=== PATIENT | female | born 1960 | race Caucasian/White ===

== ENCOUNTER → 2019-06-10 08:21 | Outpatient (BNVA) | payer BC, SELFPAY | PROVIDERS: Family Provider Family Medicine; Visit Provider Internal Medicine Cardiovascular Disease | DX: E78.5 Hyperlipidemia, unspecified (principal) | CPT/HCPCS: 80061 ==

== ENCOUNTER 2019-10-24 13:11 | Observation (INO) | payer BC, SELFPAY ==
[2019-10-24] VITALS (7 sets, daily range): BP systolic 112–141; BP diastolic 75–116; PULSE 68–75; RESP 16–18; TEMP 36.6–36.8; O2SAT 96–100; BMI 29.2
--- NOTE | 2019-10-24 13:44 | W.ED.ABDPA2 ---
HPI - Abdominal Pain General: Chief Complaint: Abdominal Pain Stated Complaint: abd pain Time Seen by Provider: 10/24/19 13:31 History of Present Illness: HPI narrative: 59-year-old female presents with complaint of sharp epigastric pain radiating bilaterally across the upper abdomen into her back. Started last night around 3 AM resolved sometime through the night and then recurred again this morning began to worsen she is has anorexia and nausea she denies any vomiting or diarrhea she had a normal bowel movement this morning. She denies dysuria urgency or frequency there is no history of renal stones. She did recently have a superficial abdominal wall cyst removed in the epigastric area but does not been draining and there is no redness around it she has a small bandage over it was examined see below. She states she ate some stirfry last night it did not seem to bother at the time she does occasionally have some reflux she is taken several atql-asp-chxhyts medications last night and this morning clued Tums Prilosec etc. has not really had any significant relief from them. MD elicited complaint: abdominal pain Pertinent past history: other (Intermittent mild reflux) Onset (ago): hour(s) Pain Consistency: constant and colicky Location: Epigastric Severity: moderate Quality: cramping and stabbing Radiation: bilateral flank (Upper back) Exacerbating factors: eating and other (Laying flat) Relieving factors: rest and other (Semi-reclined) Associated Symptoms: Reports anorexia, bloating, GI cramping, dyspepsia, heartburn, nausea and poor appetite; Denies change in bowel habits, change in stool character, coffee ground emesis, constipation, diarrhea, dysuria, fever(s), hematochezia, hematuria, hematemesis, fecal incontinence, loose stools, melena, syncope and vomiting Treatments prior to arrival: antacids Review of Systems Const: Denies: fever(s) ENMT: Denies: throat pain, ear or mastoid pain, nasal discharge or nasal congestion Card: Denies: syncope Resp: Denies: dyspnea, productive cough or non-productive cough GI: Reports: nausea, heartburn, bloating and GI cramping; Denies: vomiting, hematemesis, coffee ground emesis, diarrhea, constipation, fecal incontinence, change in bowel habits, change in stool character, hematochezia or melena : Denies: dysuria or hematuria Skin/Breast: Denies: rash or pruritus PFSH ED PFSH: Medical History (Updated 10/24/19 @ 18:37 by Rodney Ayala DO) Benign essential HTN Dyslipidemia Old cerebrovascular accident (CVA) without late effect Surgical History (Updated 10/24/19 @ 17:02 by Michael Guillaume MD) History of ankle surgery Right -- tendon History of appendectomy Laparoscopic History of breast augmentation Bilateral implants History of section, low transverse x 1 History of cholecystectomy Laparoscopic History of hysterectomy Laparoscopic assisted vaginal History of neck surgery ACF x 1 --had to have a left vocal cord implant subsequently for recurrent laryngeal nerve paralyzation during surgery History of right knee surgery History of shoulder surgery Right Social History (Updated 10/24/19 @ 16:58 by Michael Guillaume MD) Smoking and tobacco status: former smoker Quit status (tobacco): has quit using tobacco Former quit date comment: I smoked when I was in my 20s Alcohol intake: current Alcohol intake frequency: 0-2 Drinks per Day Alcohol use comment: Wine several times a week Physical Exam Const: COMMON NORMALS: no acute distress GENERAL APPEARANCE: cooperative and comfortable ORIENTATION/CONSCIOUSNESS: Yes awake, Yes oriented to person, Yes oriented to place and Yes oriented to time HENMT: COMMON NORMALS: normocephalic, atraumatic, hearing grossly normal bilaterally, external ears normal, EAC's normal, TM's normal bilaterally, Normal nasal mucous membranes and turbinates present, moist oral mucous membranes and oropharynx normal HEAD & SCALP: normocephalic and atraumatic NOSE: Normal nasal mucous membranes and turbinates present EXTERNAL EAR: Yes external ears normal EXTERNAL AUDITORY CANAL: EAC's normal TYMPANIC MEMBRANE: TM's normal bilaterally Eye: COMMON NORMALS: Equal, round and reactive pupils present, EOMs intact bilaterally, conjunctivae normal and no scleral icterus CONJUNCTIVA: Yes conjunctivae normal PUPIL: Yes Equal, round and reactive pupils present Neck/C-Spine: COMMON NORMALS: full ROM, no lymphadenopathy, supple and no JVD Lymph: LYMPHATIC: no lymphadenopathy noted and no lymphedema noted Resp: COMMON NORMALS: normal respiratory effort, No retractions, No use of accessory muscles and clear to auscultation bilaterally AUSCULTATION: clear to auscultation bilaterally Cardio: COMMON NORMALS: no JVD, regular rate, regular rhythm and No murmurs present (Cardio) RATE: regular rate RHYTHM: regular rhythm GI: COMMON NORMALS: Soft to palpation and No hepatosplenomegaly present AUSCULTATION: Yes normoactive bowel sounds PALPATION: Yes Soft to palpation, Yes Tenderness to palpation present (GI) (Mild tenderness epigastrium no guarding or no rebound bowel sounds are positive), No Guarding due to palpation present (GI) and Yes No hepatosplenomegaly present Extremity: COMMON NORMALS: normal to inspection, capillary refill normal, no clubbing, cyanosis or edema, no calf tenderness and no pedal edema Neuro: SENSORIUM/ORIENTATION: Yes oriented to person, Yes oriented to place and Yes oriented to time Skin: COMMON NORMALS: no rashes or lesions noted GENERAL SKIN EXAM: no rashes or lesions noted Course Vital Signs: Vital signs: Vital Signs Temperature 98.0 F 10/24/19 17:50 Pulse Rate 70 10/24/19 17:50 Respiratory Rate 16 10/24/19 17:50 Blood Pressure 131/81 10/24/19 17:50 Pulse Oximetry 98 10/24/19 17:50 MDM - Abdominal Pain MDM Narrative: Medical decision making narrative: Patient found to have a small bowel obstruction we will go and place an NG discussed with Dr. Guillaume he will admit the primary he will see the patient in the emergency room. Lab Data: Labs: Lab Results 10/24/19 10/24/19 10/24/19 Range/Units 13:30 13:30 13:30 WBC 9.6 (4.0-10.0) 10^3/ uL RBC 4.78 (4.1-5.3) 10^6/u L Hgb 14.1 (11.5-15.3) g/dL Hct 44.6 (37.0-47.0) % MCV 93.3 (81-99) fL MCH 29.5 (28.0-34.0) pg MCHC 31.6 (30.0-36.0) g/dL RDW 12.3 (12.1-15.1) % Plt Count 362 (130-400) 10^3/c mm MPV 10.1 (7.4-10.4) fL Neut % (Auto) 69.2 % Lymph % (Auto) 22.4 % Norton % (Auto) 5.9 % Eos % (Auto) 0.6 % Baso % (Auto) 0.6 % Neut # (Auto) 6.6 (1.8-7.7) 10^3/u L Lymph # (Auto) 2.2 (0.8-4.8) 10^3/u L Norton # (Auto) 0.6 (0.2-0.9) 10^3/u L Eos # (Auto) 0.1 (0.0-0.8) 10^3/u L Baso # (Auto) 0.1 (0.0-0.1) 10^3/u L Nucleated RBC % (a uto) 0 % Nucleated RBCs # 0.0 /100WBC Sodium 138 (136-145) mmol/L Potassium 4.2 (3.5-5.1) mmol/L Chloride 98 (98-107) mmol/L Carbon Dioxide 27 (22-29) mmol/L Anion Gap 17.2 (5-19) BUN 17 (6-20) mg/dL Creatinine 0.8 (0.5-0.9) mg/dL GFR Calculation 73.7 L (90-130) mL/min Glucose 110 (65-115) mg/dL Calculated Osmolal ity 283 L (285-295) mOsm/k g Calcium 10.6 H (8.5-10.5) mg/dL Total Bilirubin 0.5 (0.15-1.2) mg/dL AST 37 H (0-32) U/L ALT 44 H (0-33) U/L Alkaline Phosphata se 56 (35-105) IU/L Troponin T Baselin e 6 (0-10) ng/mL Troponin T 120 Min [place]sparks (0-10) ng/mL Delta Troponin T (0-10) ABS# Total Protein 8.0 (6.6-8.7) g/dL Albumin 5.3 H (3.5-5.2) g/dL Globulin 2.7 (1.3-4.6) g/dL Lipase 36 (13-60) U/L Urine Color (Yellow) Urine Appearance (CLEAR) Urine pH (5-7) Ur Specific Gravit y (1.005-1.030) Urine Protein (Negative) Urine Glucose (UA) (Normal) Urine Ketones (Negative) Urine Blood (Negative) Urine Nitrate (Negative) Urine Bilirubin (NEGATIVE) Urine Urobilinogen (Negative) mg/dL Ur Leukocyte Tammi ase (Negative) Urine RBC (0-2) /hpf Urine WBC (0-5) /hpf Ur Squamous Epith Cells (0-5) Urine Bacteria (NONE) Urine Mucus 10/24/19 10/24/19 Range/Units 14:04 15:47 WBC (4.0-10.0) 10^3/ uL RBC (4.1-5.3) 10^6/u L Hgb (11.5-15.3) g/dL Hct (37.0-47.0) % MCV (81-99) fL MCH (28.0-34.0) pg MCHC (30.0-36.0) g/dL RDW (12.1-15.1) % Plt Count (130-400) 10^3/c mm MPV (7.4-10.4) fL Neut % (Auto) % Lymph % (Auto) % Norton % (Auto) % Eos % (Auto) % Baso % (Auto) % Neut # (Auto) (1.8-7.7) 10^3/u L Lymph # (Auto) (0.8-4.8) 10^3/u L Norton # (Auto) (0.2-0.9) 10^3/u L Eos # (Auto) (0.0-0.8) 10^3/u L Baso # (Auto) (0.0-0.1) 10^3/u L Nucleated RBC % (a uto) % Nucleated RBCs # /100WBC Sodium (136-145) mmol/L Potassium (3.5-5.1) mmol/L Chloride (98-107) mmol/L Carbon Dioxide (22-29) mmol/L Anion Gap (5-19) BUN (6-20) mg/dL Creatinine (0.5-0.9) mg/dL GFR Calculation (90-130) mL/min Glucose (65-115) mg/dL Calculated Osmolal ity (285-295) mOsm/k g Calcium (8.5-10.5) mg/dL Total Bilirubin (0.15-1.2) mg/dL AST (0-32) U/L ALT (0-33) U/L Alkaline Phosphata se (35-105) IU/L Troponin T Baselin e (0-10) ng/mL Troponin T 120 Min [place] 6.00 (0-10) ng/mL Delta Troponin T 0 (0-10) ABS# Total Protein (6.6-8.7) g/dL Albumin (3.5-5.2) g/dL Globulin (1.3-4.6) g/dL Lipase (13-60) U/L Urine Color Yellow (Yellow) Urine Appearance Clear (CLEAR) Urine pH 5 (5-7) Ur Specific Gravit y 1.020 (1.005-1.030) Urine Protein Neg (Negative) Urine Glucose (UA) Norm (Normal) Urine Ketones Negative (Negative) Urine Blood 2+ H (Negative) Urine Nitrate Negative (Negative) Urine Bilirubin Neg (NEGATIVE) Urine Urobilinogen Norm (Negative) mg/dL Ur Leukocyte Tammi ase Negative (Negative) Urine RBC 5-10 H (0-2) /hpf Urine WBC 0-4 H (0-5) /hpf Ur Squamous Epith Cells 0-4 H (0-5) Urine Bacteria Trace (NONE) Urine Mucus 2+ Discharge Plan Discharge Patient Disposition: Admitted As Inpatient Admit Provider: Michael Guillaume Clinical Impression: Small bowel obstruction, Benign essential HTN Condition: Stable Interventions: ED Discharge Assessment Last Done: 10/24/19 17:00 ED Charges Last Done: 10/24/19 16:23 Discharge Date/Time: 10/24/19 17:03 Coding Level of Care Code ED Concrete Tester for Angelog Fwd Exam Comprehensive
--- NOTE | 2019-10-24 13:47 | ECG_ITS ---
Measurements Intervals [place] Rate: 68 P: 28 MA: 196 QRS: 23 QRSD: 96 T: 40 QT: 424 QTc: 453 SINUS RHYTHM POSSIBLE ANTERIOR MYOCARDIAL INFARCTION , PROBABLY OLD [30 ms Q WAVE IN V3/V4, OR R < 0.2 mV IN V4] Compared to ECG 12/04/2017 09:49:23 No significant changes Electronically Signed On 10-24-2019 16:36:50 CDT by Alvarez Bain M.D. [id number]
--- NOTE | 2019-10-24 13:47 | CT_ITS ---
WS: [id number] CT abdomen pelvis w con* [id number] REASON FOR EXAM: abd pain IV CONTRAST ADMINISTERED: Omnipaque 300, 95 mL. This lesion is smooth in outline. TOTAL EXAM DLP: 1024.[address] scans at [facility] use at least one of these dose optimization techniques: automat ed exposure control; mA and/or kV adjustment per patient size (includes targeted exams where dose is matched to clinical indication); or iterative reconstruction. FINDINGS: Dilatation of the stomach, Follow-up evaluation of this mass with a three-phase study recommended. duodenum and jejunum down to the mid jejunum at the umbilicus area is noted and there is narrowing seen in the partial obstruction at the umbilical area in the mid jejunum. A definite tumor is not seen in this location and there is no evidence of intussusception. Abrupt narrowing is noted. The appendix on the right was normal the ascending colon was normal. The liver shows normal enhancement small hemangiomas seen along the surface of the liver and along th e caudate lobe is a mass measures 2.54 cm that is not purely cystic. The lumbar spine appear to be essentially normal. The pelvis show no bony changes. . The pancreas is normal no masses in the pancreas are seen. Prior cholecystectomy . Both kidneys appear to be normal with no obstructive changes the ureters were normal. The large bowel appears to be essentially normal. There is no lesions in the descending colon no dive rticulosis or diverticulitis. In the pelvis there appears to be hysterectomized pelvis of the uterus and ovaries are not seen. Bilateral augmentation of the breast are noted. IMPRESSION: Incomplete small bowel obstruction in the mid jejunum. A mass is seen in the caudate lobe of the liver. This mass is smooth in outline consideration of a th ree-phase study with contrast or*MRI to evaluate this mass.
--- NOTE | 2019-10-24 13:47 | XR_ITS ---
WS: [id number] XR chest 1V portable [id number] REASON FOR EXAM: dyspnea/cough FINDINGS: Bilateral augmentation of the breast are seen. The heart and mediastinal interfaces normal. Peripheral lungs are well aerated. No pneumonia, pleural effusion, pulmonary edema, or mass effect. No interval changes since December 04, 2017. XR/XR chest 1V portable [id number] IMPRESSION: Negative chest for active pathology Bilateral breast augmentation
[2019-10-24] MEDS: sodium chloride 0.9% 1,000 ML 999 ML IV (14:03)
[2019-10-24 14:15] LABS: Basophils # 0.1 10^3/uL (0.0-0.1); Basophils % 0.6 %; Eosinophils # 0.1 10^3/uL (0.0-0.8); Eosinophils % 0.6 %; Hematocrit 44.6 % (37.0-47.0); Hemoglobin 14.1 g/dL (11.5-15.3); Lymphocytes # 2.2 10^3/uL (0.8-4.8); Lymphocytes % 22.4 %; Mean Corpuscular HGB Conc 31.6 g/dL (30.0-36.0); Mean Corpuscular Hemoglobin 29.5 pg (28.0-34.0); Mean Corpuscular Volume 93.3 fL (81-99); Mean Platelet Volume 10.1 fL (7.4-10.4); Monocytes # 0.6 10^3/uL (0.2-0.9); Monocytes % 5.9 %; Neutrophils # 6.6 10^3/uL (1.8-7.7); Neutrophils % 69.2 %; Nucleated Red Blood Cells % 0 %; Platelet Count 362 10^3/cmm (130-400); Red Blood Count 4.78 10^6/uL (4.1-5.3); Red Cell Distribution Width 12.3 % (12.1-15.1); White Blood Count 9.6 10^3/uL (4.0-10.0)
[2019-10-24] MEDS: iohexol 300 mg/mL 100 mL Btl IV (14:22)
[2019-10-24 14:24] LABS: Alanine Aminotransferase 44 U/L (0-33); Albumin Level 5.3 g/dL (3.5-5.2); Alkaline Phosphatase 56 IU/L (35-105); Anion Gap 17.2 (5-19); Aspartate Amino Transferase 37 U/L (0-32); Blood Urea Nitrogen 17 mg/dL (6-20); Calcium 10.6 mg/dL (8.5-10.5); Carbon Dioxide 27 mmol/L (22-29); Chloride 98 mmol/L (98-107); Creatinine Clr Calc Pharmacy 77.0383; Globulin 2.7 g/dL (1.3-4.6); Glomerular Filtration Rate 73.7 mL/min (90-130); Glucose 110 mg/dL (65-115); Lipase 36 U/L (13-60); Osmolality Calculated 283 mOsm/kg (285-295); Potassium 4.2 mmol/L (3.5-5.1); Sodium 138 mmol/L (136-145); Total Bilirubin 0.5 mg/dL (0.15-1.2)
[2019-10-24 14:25] LABS: Troponin(5th) Baseline 6 ng/mL (0-10)
[2019-10-24 15:01] LABS: Add Urine Microscopic? YES; Bilirubin Urine Neg (NEGATIVE); Blood Urine 2+ (Negative); Glucose Urine UA Norm (Normal); Ketones Urine Negative (Negative); Leukocyte Esterase Urine Negative (Negative); Nitrate Urine Negative (Negative); Protein Urine Neg (Negative); Urine Appearance Clear (CLEAR); Urine Color Yellow (Yellow); Urobilinogen Urine Norm (Negative); pH Urine 5 (5-7)
[2019-10-24 15:06] LABS: Bacteria Urine TRACE; Mucus Urine 2+; Squamous Epithelial Cell Urine 0-4 (0-5); WBC Urine 0-4 /hpf (0-5)
[2019-10-24 15:07] LABS: Add Urine Culture? No
[2019-10-24] MEDS: morphine 4 mg/mL SDV 1 mL IVP (15:19)
[2019-10-24] MEDS: ondansetron 2 mg/ML SDV 2 mL 4 MG IVP (15:19)
--- NOTE | 2019-10-24 15:47 | ECG_ITS ---
Measurements Intervals [place] Rate: 73 P: 26 MA: 187 QRS: 31 QRSD: 93 T: 29 QT: 416 QTc: 461 SINUS RHYTHM Compared to ECG 10/24/2019 14:56:13 Myocardial infarct finding no longer present Electronically Signed On 10-25-2019 18:09:21 CDT by Ana Rosa Hendrix M.D. [id number]
[2019-10-24] MEDS: LORazepam 2 mg/mL INJ 1 mL 1 MG IVP (15:56)
[2019-10-24 16:07] LABS: Troponin 5 2HR Delta 0 ABS# (0-10)
--- NOTE | 2019-10-24 16:35 | XR_ITS ---
WS: [id number] XR KUB portable [id number] REASON FOR EXAM: ng placement FINDINGS: Nasogastric tube is seen transversing the mediastinum and is seen in the upper aspects of t he stomach. Consideration of repositioning of the tube lower in the stomach is recommended. There is again noted bilateral breast augmentation. XR/XR KUB portable [id number] IMPRESSION: Nasogastric tube is seen in the stomach upper portion.
--- NOTE | 2019-10-24 16:42 | PC.NURSE ---
portable xray at bedside
--- NOTE | 2019-10-24 16:44 | PM.HP ---
Providers/Chief Complaint Admitting Physician: Michael Guillaume MD Chief Complaint: abd pain History of Present Illness Patria Johnson is a 59 year old female who states that she ate some stirfry last night and after going to bed awoke around 3 AM with crampy upper abdominal pain. She said she has eaten the same type of stirfry multiple times in the past without any problems. No one else in the household ate what she ate last night. She says the pain continued to worsen throughout the morning and even went through to her back. She developed nausea but never did vomit. She tried some antacids and [id number]-kfp-jpreqif remedies without success and finally came to the emergency room where a CAT scan showed evidence of a possible mid small bowel obstruction. She ended up getting a nasogastric tube placed in the emergency department but said she was actually starting to feel better even before that happened. The patient says this has never happened to her before. She had a normal bowel movement this morning although was a little bit more hard than normal in consistency. She denies any fevers at home. She had a colonoscopy 4?5 years ago and says it was normal. She has no known family history of GI neoplasia. Review of Systems General: Reports: 10 or more systems reviewed and unremarkable except in HPI and below Const: Denies: fever(s) ENMT: Reports: throat pain (Only from nasogastric tube) Resp: Denies: dyspnea GI: Reports: abdominal pain and nausea; Denies: vomiting : Denies: dysuria Medications/Allergies Home Medications Medication Instructions Recorded Confirmed Last Taken Type albuterol sulfate 90 mcg/actuation 2 puff INHALATION Q6H PRN 06/03/19 10/24/19 Unknown History aerosol inhaler aspirin 81 mg tablet,delayed 81 mg PO DAILY tab 06/03/19 10/24/19 10/24/19 History release levothyroxine 75 mcg capsule See Rx Instructions .ROUTE 06/03/19 10/24/19 Unknown History .COMPLEX cap levothyroxine 88 mcg capsule See Rx Instructions .ROUTE 06/03/19 10/24/19 10/24/19 History .COMPLEX cap nitroglycerin 0.4 mg sublingual 0.4 mg SUBLINGUAL Q5M PRN 06/03/19 10/24/19 Unknown History tablet metoprolol tartrate 25 mg tablet 25 mg PO BID 90 Days #180 tab 08/30/19 10/24/19 10/24/19 Rx doxycycline hyclate 100 mg PO BID 10/24/19 10/24/19 10/23/19 History simvastatin 20 mg PO BID 10/24/19 10/24/19 10/24/19 History Allergies Allergy/AdvReac Type Severity Reaction Status Date / Time No Known Allergies Allergy Unverified 10/24/19 13:26 PFSH Acute PFSH: Medical History (Updated 10/24/19 @ 16:47 by Michael Guillaume MD) Benign essential HTN Dyslipidemia Old cerebrovascular accident (CVA) without late effect Surgical History (Updated 10/24/19 @ 17:02 by Michael Guillaume MD) History of ankle surgery Right -- tendon History of appendectomy Laparoscopic History of breast augmentation Bilateral implants History of section, low transverse x 1 History of cholecystectomy Laparoscopic History of hysterectomy Laparoscopic assisted vaginal History of neck surgery ACF x 1 --had to have a left vocal cord implant subsequently for recurrent laryngeal nerve paralyzation during surgery History of right knee surgery History of shoulder surgery Right Social History (Updated 10/24/19 @ 16:58 by Michael Guillaume MD) Smoking and tobacco status: former smoker Quit status (tobacco): has quit using tobacco Former quit date comment: I smoked when I was in my 20s Alcohol intake: current Alcohol intake frequency: 0-2 Drinks per Day Alcohol use comment: Wine several times a week Vitals/I&O/Wt Last Vital Signs Temp 98.2 F 10/24/19 13:23 Pulse 68 10/24/19 15:24 Resp 18 10/24/19 13:23 BP 141/116 10/24/19 15:24 Pulse Ox 99 10/24/19 15:24 10/24/19 10/24/19 10/24/19 06:59 14:59 22:59 Intake Total 1000 / 1000 Balance 1000 / 1000 Weight last 48 hrs Weight 170 lb Physical Exam Narrative: EXAM NARRATIVE: The patient was encountered in her room in the emergency department. She has a nasogastric tube in her right naris that is draining fairly clear fluid/saliva. She does not appear to be in any distress. The pupils are equal. No carotid bruits are heard. The lungs are clear anteriorly. The heart is regular. The abdomen reveals hypoactive bowel sounds but is reasonably soft. The patient does have some scattered tenderness about the upper abdomen. No obvious masses are palpated. The extremities reveal no edema. Neurologically the patient is grossly intact. Data : 10/24/19 13:30 10/24/19 13:30 CT Abd/Pel: Radiologist's impression: CT abdomen pelvis 10/24/2019 IMPRESSION: Incomplete small bowel obstruction in the mid jejunum. A mass is seen in the caudate lobe of the liver. This mass is smooth in outline consideration of a three-phase study with contrast or*MRI to evaluate this mass. A&P Assessment and plan (1) Small bowel obstruction: CT was reviewed. It is difficult to identify an actual transition point but it appears as if the bowel narrows somewhat in the low epigastrium towards the midline. I discussed this with the patient and her in some detail. We discussed toe most of these episodes are from postoperative adhesions (the patient has had multiple abdominal procedures), although some types of food can create temporary similar problems (and the patient did eat a vegetable dish last night). She says she was already feeling better even before the nasogastric tube was inserted, so hopefully this will be a very transient problem. She currently has an NG tube and is comfortable. Continue conservative management for now. Status: Acute Attestations Medical Necessity Statement*: Based on my medical assessment, presenting symptoms and consideration of the scope of surgical therapy, I expect this patient will require treatment in the hospital for a period of time spanning less than 2 midnights, and is therefore being placed in observation status. Coding Level of Care Code Acute Surgical Technician for Sheldon Pendleton Diagnoses Small bowel obstruction K56.609
[2019-10-24] MEDS: D5-NS 0.45% + KCL 20 mEq 20 MEQ/1,000 ML BAG 100 MEQ IV (17:46)
--- NOTE | 2019-10-24 19:47 | ECG_ITS ---
Measurements Intervals [place] Rate: 68 P: 24 WI: 199 QRS: 3 QRSD: 106 T: 28 QT: 423 QTc: 451 SINUS RHYTHM INFERIOR MYOCARDIAL INFARCTION PROBABLY OLD Compared to ECG 10/24/2019 14:56:13 No significant changes Electronically Signed On 10-25-2019 18:08:40 CDT by Ana Rosa Hendrix M.D. [id number]
[2019-10-24 20:10] LABS: Troponin 5 6HR Delta 0 ng/L (0-12)
[2019-10-24] MEDS: morphine 4 mg/mL SDV 1 mL 2 MG IVP (20:29)
[2019-10-25] VITALS (7 sets, daily range): BP systolic 117–132; BP diastolic 72–85; PULSE 79–85; RESP 16–18; TEMP 36.9–37.1; O2SAT 96–99
[2019-10-25] MEDS: phenol oral Spray 177 mL 3 SPRAY MUCOUS MEM (01:24)
[2019-10-25] MEDS: D5-NS 0.45% + KCL 20 mEq 20 MEQ/1,000 ML BAG 100 MEQ IV (03:44)
[2019-10-25 05:00] LABS: Basophils # 0.1 10^3/uL (0.0-0.1); Basophils % 0.6 %; Eosinophils # 0.1 10^3/uL (0.0-0.8); Hematocrit 38.2 % (37.0-47.0); Hemoglobin 12.1 g/dL (11.5-15.3); Lymphocytes # 2.2 10^3/uL (0.8-4.8); Lymphocytes % 27.1 %; Mean Corpuscular HGB Conc 31.7 g/dL (30.0-36.0); Mean Corpuscular Volume 94.6 fL (81-99); Monocytes # 0.8 10^3/uL (0.2-0.9); Monocytes % 9.5 %; Neutrophils # 5.1 10^3/uL (1.8-7.7); Nucleated Red Blood Cells % 0 %; Platelet Count 288 10^3/cmm (130-400); Red Blood Count 4.04 10^6/uL (4.1-5.3); Red Cell Distribution Width 12.2 % (12.1-15.1); White Blood Count 8.3 10^3/uL (4.0-10.0)
[2019-10-25 05:21] LABS: Alanine Aminotransferase 32 U/L (0-33); Albumin Level 4.1 g/dL (3.5-5.2); Alkaline Phosphatase 46 IU/L (35-105); Aspartate Amino Transferase 24 U/L (0-32); Blood Urea Nitrogen 11 mg/dL (6-20); Calcium 9.6 mg/dL (8.5-10.5); Carbon Dioxide 30 mmol/L (22-29); Chloride 100 mmol/L (98-107); Globulin 2.5 g/dL (1.3-4.6); Glomerular Filtration Rate 85.9 mL/min (90-130); Glucose 126 mg/dL (65-115); Osmolality Calculated 284 mOsm/kg (285-295); Sodium 138 mmol/L (136-145); Total Bilirubin 0.3 mg/dL (0.15-1.2); Total Protein 6.6 g/dL (6.6-8.7)
--- NOTE | 2019-10-25 06:00 | PC.NURSE ---
SHIFT SUMMARY Has had a good night. Had some c/o cramping pain across upper abdomen and into back early in shift and received IV Morphine X1 with good relief. Since has denied need for further med. Abd soft and nontender. BS hypoactive but has started to pass some gas this morning. Has had no c/o nausea. NG remains intact via right nare and to low interm sx. Had 275ml pale green drainage this shift. IV infusing at 100ml/hr rate. Remains NPO with swabs for dry mouth. Using Chloraseptic spray for sore throat with NG. Ambulates to bathroom
--- NOTE | 2019-10-25 07:50 | P.PN_ITS ---
Subjective Subjective: Interval history: The patient says her abdominal pain is completely gone. She has been passing flatus all night long. Vitals/I&O/Wt Last Vital Signs Temp 98.8 F 10/25/19 07:43 Pulse 81 10/25/19 07:43 Resp 16 10/25/19 07:43 BP 132/85 10/25/19 07:43 Pulse Ox 96 10/25/19 07:43 10/24/19 10/25/19 10/25/19 22:59 06:59 14:59 Intake Total 1078.333 / 1995.666 918.333 / 1995.666 Output Total 575 / 575 Balance 1078.333 / 1421.666 343.333 / 1421.666 Weight last 48 hrs Weight 170 lb Physical Exam Narrative: EXAM NARRATIVE: Bowel sounds are present. The abdomen is comple tely soft and nontender this morning. Data : 10/25/19 04:15 10/25/19 04:15 A&P Assessment and plan (1) Small bowel obstruction: The patient is much improved this morning. I have to wonder if this occurred due to the large intake of vegetable matter the night previously. Discontinue nasogastric tube. Clear liquid diet. If the patient does well we will advance her diet quickly and if she has no problems she can be discharged home. Status: Acute Attestations Medical Necessity Statement*: Based on my medical assessment, presenting symptoms and consideration of the scope of surgical therapy, I expect this patient will require treatment in the hospital for a period of time spanning less than 2 midnights, and remains in observation status. Coding Level of Care Code Acute Optical Glass Wet Inspector for Sheldon Pendleton Diagnoses Small bowel obstruction K56.609
--- NOTE | 2019-10-25 08:04 | PM.DCS ---
Discharge Providers Date of Admission: 10/24/19 16:07 Date of Discharge: October 25, 2019 Attending Provider at Admission: Michael Guillaume MD Attending Provider at Discharge: Michael Guillaume MD Primary Care Provider: Nima Hoffman MD Diagnoses at Discharge Discharge Diagnosis (1) Small bowel obstruction: Status: Acute Reason for Visit Reason for Visit: abd pain Hospital Course Discharge Summary: This is a 59-year-old white female who presented to the hospital with a less than 24-hour history of crampy upper abdominal pain after eating stirfry with a lot of vegetables in it the night previously. A CAT scan showed changes consistent with a possible small bowel obstruction. A nasogastric tube was inserted and the patient was placed in observation status. Her nasogastric tube had minimal output. By the following morning her pain was completely gone and she had been passing flatus all night. Her nasogastric tube was removed and she was started on a clear liquid diet which she tolerated well. My intention was to advance her to a soft diet, but by mid?late morning she was up ambulating in the hallways and said she was feeling great. She asked if she could be discharged this morning. The patient was discharged to home with instructions to follow-up with her primary care physician as needed. Physical Exam Narrative: EXAM NARRATIVE: Bowel sounds present. Abdomen completely soft and nontender. Discharge Data Data Completed and Pending: Completed Studies During Hospitalization Category Date Time Status CT abdomen pelvis w con* [id number] Stat Cat Scan 10/24/19 13:47 Completed XR KUB portable 7 [id number] Routine Exams 10/24/19 16:35 Completed XR chest 1V tresa ble [id number] Stat Exams 10/24/19 13:47 Completed Pending at discharge Category Date Time Status Immunochemical Fe lynne OCB Stat Lab 10/24/19 14:06 Ordered Labs from last 24 hours 10/25/19 10/25/19 10/24/19 04:15 04:15 19:47 WBC 8.3 RBC 4.04 L Hgb 12.1 Hct 38.2 MCV 94.6 MCH 30.0 MCHC 31.7 RDW 12.2 Plt Count 288 MPV 10.0 Neut % (Auto) 61.0 Lymph % (Auto) 27.1 [place] % (Auto) 9.5 Eos % (Auto) 1.0 Baso % (Auto) 0.6 Neut # (Auto) 5.1 Lymph # (Auto) 2.2 [place] # (Auto) 0.8 Eos # (Auto) 0.1 Baso # (Auto) 0.1 Nucleated RBC % (a uto) 0 Nucleated RBCs # 0.0 Sodium 138 Potassium 4.0 Chloride 100 Carbon Dioxide 30 H Anion Gap 12.0 BUN 11 Creatinine 0.7 GFR Calculation 85.9 L Glucose 126 H Calculated Osmolal ity 284 L Calcium 9.6 Total Bilirubin 0.3 AST 24 ALT 32 Alkaline Phosphata se 46 Troponin I 6 Hour 6.00 Troponin I Hi Sens Del 0 Troponin T Baselin e Troponin T 120 Min [place] Troponin T Total Protein 6.6 Albumin 4.1 Globulin 2.5 Lipase Urine Color Urine Appearance Urine pH Ur Specific Gravit y Urine Protein Urine Glucose (UA) Urine Ketones Urine Blood Urine Nitrate Urine Bilirubin Urine Urobilinogen Ur Leukocyte Tammi ase Urine RBC Urine WBC Ur Squamous Epith Cells Urine Bacteria Urine Mucus 10/24/19 10/24/19 10/24/19 15:47 14:04 13:30 WBC RBC Hgb Hct MCV MCH MCHC RDW Plt Count MPV Neut % (Auto) Lymph % (Auto) [place] % (Auto) Eos % (Auto) Baso % (Auto) Neut # (Auto) Lymph # (Auto) [place] # (Auto) Eos # (Auto) Baso # (Auto) Nucleated RBC % (a uto) Nucleated RBCs # Sodium Potassium Chloride Carbon Dioxide Anion Gap BUN Creatinine GFR Calculation Glucose Calculated Osmolal ity Calcium Total Bilirubin AST ALT Alkaline Phosphata se Troponin I 6 Hour Troponin I Hi Sens Del Troponin T Baselin e 6 Troponin T 120 Min [place] 6.00 [place] Troponin T 0 Total Protein Albumin Globulin Lipase Urine Color Yellow Urine Appearance Clear Urine pH 5 Ur Specific Gravit y 1.020 Urine Protein Neg Urine Glucose (UA) Norm Urine Ketones Negative Urine Blood 2+ H Urine Nitrate Negative Urine Bilirubin Neg Urine Urobilinogen Norm Ur Leukocyte Tammi ase Negative Urine RBC 5-10 H Urine WBC 0-4 H Ur Squamous Epith Cells 0-4 H Urine Bacteria Trace Urine Mucus 2+ 10/24/19 10/24/19 13:30 13:30 WBC 9.6 RBC 4.78 Hgb 14.1 Hct 44.6 MCV 93.3 MCH 29.5 MCHC 31.6 RDW 12.3 Plt Count 362 MPV 10.1 Neut % (Auto) 69.2 Lymph % (Auto) 22.4 [place] % (Auto) 5.9 Eos % (Auto) 0.6 Baso % (Auto) 0.6 Neut # (Auto) 6.6 Lymph # (Auto) 2.2 [place] # (Auto) 0.6 Eos # (Auto) 0.1 Baso # (Auto) 0.1 Nucleated RBC % (a uto) 0 Nucleated RBCs # 0.0 Sodium 138 Potassium 4.2 Chloride 98 Carbon Dioxide 27 Anion Gap 17.2 BUN 17 Creatinine 0.8 GFR Calculation 73.7 L Glucose 110 Calculated Osmolal ity 283 L Calcium 10.6 H Total Bilirubin 0.5 AST 37 H ALT 44 H Alkaline Phosphata se 56 Troponin I 6 Hour Troponin I Hi Sens Del Troponin T Baselin e Troponin T 120 Min [place] Troponin T Total Protein 8.0 Albumin 5.3 H Globulin 2.7 Lipase 36 Urine Color Urine Appearance Urine pH Ur Specific Gravit y Urine Protein Urine Glucose (UA) Urine Ketones Urine Blood Urine Nitrate Urine Bilirubin Urine Urobilinogen Ur Leukocyte Tammi ase Urine RBC Urine WBC Ur Squamous Epith Cells Urine Bacteria Urine Mucus Vitals: Last Vital Signs Temp 98.8 F 10/25/19 07:43 Pulse 81 10/25/19 07:43 Resp 16 10/25/19 07:43 BP 132/85 10/25/19 07:43 Pulse Ox 96 10/25/19 07:43 Discharge Plan Discharge Patient Disposition: Home, Self-Care Condition: Stable Prescriptions: Continued aspirin 81 mg tablet,delayed release (DR/EC) 81 mg PO DAILY RF: 0 nitroglycerin [Nitrostat] 0.4 mg tablet, sublingual 0.4 mg SUBLINGUAL Q5M PRN (Reason: Chest Pain) RF: 0 albuterol sulfate [Ventolin HFA] 90 mcg/actuation HFA aerosol inhaler 2 puff INHALATION Q6H PRN (Reason: Shortness Of Breath) RF: 0 levothyroxine 88 mcg capsule See Rx Instructions .ROUTE .COMPLEX RF: 0 levothyroxine 75 mcg capsule See Rx Instructions .ROUTE .COMPLEX RF: 0 metoprolol tartrate 25 mg tablet 25 mg PO BID 90 Days Qty: 180 RF: 3 doxycycline hyclate 100 mg capsule 100 mg PO BID RF: 0 simvastatin 20 mg tablet 20 mg PO BID RF: 0 Discharge Orders: Discharge Order (Routine); Ordered 10/25/19 Ordered By: Michael Guillaume Discharge Diet: Advance as tolerated Discharge Activity: Resume usual activity Activity Restrictions/Additional Instructions: Follow-up with your primary care physician as needed. 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
--- NOTE | 2019-10-25 08:42 | PC.NURSE ---
Removed pts NG at 0730. Patient tolerating sips of fluids well. Denies any nausea. Patient tolerated well.
[2019-10-25] MEDS: heparin 5,000 unit/mL INJ 1 mL 5000 UNIT SUBCUT (09:46)
[2019-10-25] MEDS: atorvastatin 40 mg Tablet 20 MG PO (09:47)
[2019-10-25] MEDS: aspirin 81 mg EC Tablet PO (09:47)
== END 2019-10-25 12:10 | disposition home or self-care (01) ==
LOC: ER 13:31 → MEDSURG 17:10
PROVIDERS: Admitting Provider Surgery; Emergency Provider Family Medicine; Family Provider Family Medicine; PCP Family Medicine; Visit Provider Surgery
DX: K56.609 Unspecified intestinal obstruction, unspecified as to partial versus complete obstruction (principal); Z79.82 Long term (current) use of aspirin; I10 Essential (primary) hypertension; E78.5 Hyperlipidemia, unspecified; Z86.73 Personal history of transient ischemic attack (TIA), and cerebral infarction without residual deficits; Z87.891 Personal history of nicotine dependence
CPT/HCPCS: 12345; 36415; 71045; 74018; 74177; 80053; 81001; 83690; 84484; 85025; 93005; 96361; 96372; 96374; 96375; 96376; 99283; 99285; G0378; J1644; J2060; J2270; J2405; J7030; Q9967

== ENCOUNTER → 2019-12-02 11:20 | Outpatient (BNVA) | payer BC, SELFPAY | PROVIDERS: Family Provider Family Medicine; PCP Family Medicine; Visit Provider Internal Medicine Cardiovascular Disease | DX: E78.5 Hyperlipidemia, unspecified (principal); I49.8 Other specified cardiac arrhythmias; Z86.73 Personal history of transient ischemic attack (TIA), and cerebral infarction without residual deficits; I10 Essential (primary) hypertension | CPT/HCPCS: 80061 ==

== ENCOUNTER → 2020-02-04 09:00 | Outpatient (BNVA) | payer BC, SELFPAY | PROVIDERS: Family Provider Family Medicine; PCP Family Medicine; Visit Provider Internal Medicine Cardiovascular Disease | DX: E78.5 Hyperlipidemia, unspecified (principal); I10 Essential (primary) hypertension | CPT/HCPCS: 80061 ==

== ENCOUNTER → 2020-06-17 12:55 | Outpatient (BNVA) | payer BC, SELFPAY | PROVIDERS: PCP Family Medicine; Visit Provider Internal Medicine | DX: R76.8 Other specified abnormal immunological findings in serum (principal); Z79.899 Other long term (current) drug therapy; Z11.59 Encounter for screening for other viral diseases; Z11.1 Encounter for screening for respiratory tuberculosis; M25.50 Pain in unspecified joint; M35.00 Sjogren syndrome, unspecified; R21 Rash and other nonspecific skin eruption; Z87.891 Personal history of nicotine dependence | CPT/HCPCS: 36415; 81001; 86160; 86480; 86704; 86803; 86812; 87340; 99204 ==

== ENCOUNTER 2020-06-24 13:18 | Outpatient (CLI) | payer BC, SELFPAY ==
--- NOTE | 2020-06-24 13:31 | XR_ITS ---
WS: [id number] PROCEDURE: XR chest 2V* [id number] CLINICAL INFORMATION: POSITIVE QUANTIFORON GOLD COMPARISON: April 22, 2020 FINDINGS: Heart: Normal cardiac silhouette. Lungs: Lungs are clear. No consolidation or pleural fluid. Moderate chronic emphysematous changes. Ca lcified breast implants. Bones: Postoperative changes lower cervical spine. Cholecystectomy clips. XR/XR chest 2V* [id number] IMPRESSION: No acute chest findings.
== END 2020-06-24 13:19 | disposition home or self-care (01) ==
LOC: RADWPI 13:22
PROVIDERS: PCP Family Medicine; Visit Provider Family Medicine
DX: R76.12 Nonspecific reaction to cell mediated immunity measurement of gamma interferon antigen response without active tuberculosis (principal)
CPT/HCPCS: 71046; 72202; 73120; 73560

== ENCOUNTER 2020-06-24 13:49 | Outpatient (CLI) | payer BC, SELFPAY ==
--- NOTE | 2020-06-24 14:18 | XR_ITS ---
WS: [id number] TECHNIQUE: 2 views of the right hand CLINICAL INFORMATION: R76.8 - Other specified abnormal immunological findings in serum COMPARISON: None. FINDINGS: Normal metacarpals. Normal MCP joint. Metacarpal heads are normal in appearance. Normal PIP and DIP j oints. No evidence of acute fracture or dislocation. Radiocarpal joint: Normal. Carpal bones: Normal. XR/XR hand RT 2V [id number] IMPRESSION: Normal right hand.
--- NOTE | 2020-06-24 14:18 | XR_ITS ---
WS: [id number] KNEE LEFT TECHNIQUE: 2 views of the left knee CLINICAL INFORMATION: R76.8 - Other specified abnormal immunological findings in serum COMPARISON: None. FINDINGS: Left knee is normal in appearance. No evidence of acute fracture dislocation. Small suprapatellar eff usion. Slightly hypertrophic patella. XR/XR knee LT 1-2V [id number] IMPRESSION: Small suprapatellar effusion. Slightly hypertrophic patella.
--- NOTE | 2020-06-24 14:18 | XR_ITS ---
WS: [id number] KNEE RIGHT TECHNIQUE: 2 views of the right knee CLINICAL INFORMATION: R76.8 - Other specified abnormal immunological findings in serum COMPARISON: None. FINDINGS: Right knee is normal in appearance. No evidence of acute fracture dislocation. No significant effusio n. Patella is normal. XR/XR knee RT 1-2V [id number] IMPRESSION: Normal right knee.
--- NOTE | 2020-06-24 14:18 | XR_ITS ---
WS: [id number] TECHNIQUE: 2 views of the left hand CLINICAL INFORMATION: R76.8 - Other specified abnormal immunological findings in serum COMPARISON: None. FINDINGS: Normal metacarpals. Normal MCP joint. Metacarpal heads are normal in appearance. Normal PIP and DIP j oints. No evidence of acute fracture or dislocation. Radiocarpal joint: Normal. Carpal bones: Normal. XR/XR hand LT 2V [id number] IMPRESSION: Normal left hand.
--- NOTE | 2020-06-24 14:18 | XR_ITS ---
WS: [id number] SI JOINTS TECHNIQUE: 3 views of the sacroiliac joints CLINICAL INFORMATION: L40.9 - Psoriasis, unspecified COMPARISON: None. FINDINGS: Sacroiliac joints are normal in appearance. No significant erosive changes. Mild degenerative arthrit is. Lower lumbar spine is unremarkable. Normal pelvic phlebolith. XR/XR sacroiliac jts m 3V [id number] IMPRESSION: Mild degenerative arthritis sacroiliac joints. No erosive changes.
== END 2020-06-24 13:50 | disposition home or self-care (01) ==
LOC: RADWPI 13:53
PROVIDERS: PCP Family Medicine; Visit Provider Internal Medicine
DX: R76.8 Other specified abnormal immunological findings in serum (principal); L40.9 Psoriasis, unspecified; M46.1 Sacroiliitis, not elsewhere classified; M25.462 Effusion, left knee
CPT/HCPCS: 72202; 73120; 73560

== ENCOUNTER → 2020-09-29 11:57 | Outpatient (BNVA) | payer BC, SELFPAY | PROVIDERS: PCP Family Medicine; Visit Provider Student in an Organized Health Care Education/Training Program | DX: R76.12 Nonspecific reaction to cell mediated immunity measurement of gamma interferon antigen response without active tuberculosis (principal) | CPT/HCPCS: 80076 ==

== ENCOUNTER 2020-10-01 11:48 | Outpatient (CLI) | payer BC, SELFPAY ==
[2020-10-03 15:17] LABS: Quantiferon Mitogen 8.66 IU/mL; Quantiferon Nil 0.03 IU/mL; Quantiferon Plus TB1 0.96 IU/mL; Quantiferon Plus TB2 0.85 IU/mL; Quantiferon TB Gold POSITIVE (NEGATIVE)
== END 2020-10-01 11:49 | disposition home or self-care (01) ==
PROVIDERS: PCP Family Medicine; Visit Provider Student in an Organized Health Care Education/Training Program
DX: R76.12 Nonspecific reaction to cell mediated immunity measurement of gamma interferon antigen response without active tuberculosis (principal)
CPT/HCPCS: 86480

== ENCOUNTER 2020-10-14 11:55 | Outpatient (CLI) | payer BC, SELFPAY ==
[2020-10-14 12:46] LABS: Basophils % 0.4 %; Eosinophils # 0.1 10^3/uL (0.0-0.8); Eosinophils % 0.7 %; Hematocrit 38.9 % (37.0-47.0); Hemoglobin 12.6 g/dL (11.5-15.3); Lymphocytes # 2.1 10^3/uL (0.8-4.8); Lymphocytes % 29.1 %; Mean Corpuscular HGB Conc 32.4 g/dL (30.0-36.0); Mean Corpuscular Volume 92.6 fL (81-99); Mean Platelet Volume 9.6 fL (7.4-10.4); Monocytes # 0.9 10^3/uL (0.2-0.9); Monocytes % 12.5 %; Neutrophils # 4.06 10^3/uL (1.8-7.7); Neutrophils % 56.5 %; Nucleated Red Blood Cells % 0 %; Platelet Count 282 10^3/cmm (130-400); Red Cell Distribution Width 12.1 % (12.1-15.1); White Blood Count 7.2 10^3/uL (4.0-10.0)
[2020-10-14 13:10] LABS: Alanine Aminotransferase 22 U/L (0-33); Albumin Level 4.6 g/dL (3.5-5.2); Alkaline Phosphatase 55 IU/L (35-105); Anion Gap 15.3 (5-19); Aspartate Amino Transferase 20 U/L (0-32); Blood Urea Nitrogen 18 mg/dL (6-20); Calcium 8.9 mg/dL (8.5-10.5); Carbon Dioxide 25 mmol/L (22-29); Chloride 100 mmol/L (98-107); Globulin 2.3 g/dL (1.3-4.6); Glomerular Filtration Rate 102.3 mL/min (90-130); Glucose 91 mg/dL (65-115); Osmolality Calculated 283 mOsm/kg (285-295); Potassium 4.3 mmol/L (3.5-5.1); Sodium 136 mmol/L (136-145); Total Bilirubin 0.3 mg/dL (0.15-1.2); Total Protein 6.9 g/dL (6.6-8.7)
[2020-10-14 13:41] LABS: Erythrocyte Sedimentation Rate 19 mm/hr (0-15)
[2020-10-14 13:59] LABS: C Reactive Protein 17.2 mg/L (0.0-4.9)
== END 2020-10-14 11:56 | disposition home or self-care (01) ==
LOC: LAB 12:00
PROVIDERS: PCP Family Medicine; Visit Provider Internal Medicine
DX: R76.8 Other specified abnormal immunological findings in serum (principal); Z79.899 Other long term (current) drug therapy
CPT/HCPCS: 36415; 80053; 85025; 85651; 86140

== ENCOUNTER → 2020-10-15 10:24 | Outpatient (BNVA) | payer BC, SELFPAY | PROVIDERS: PCP Family Medicine; Visit Provider Internal Medicine | DX: R76.8 Other specified abnormal immunological findings in serum (principal); Z22.7 Latent tuberculosis; Z79.899 Other long term (current) drug therapy; M25.50 Pain in unspecified joint; Z87.891 Personal history of nicotine dependence | CPT/HCPCS: 99213; 99214 ==

== ENCOUNTER → 2020-11-24 13:23 | Outpatient (BNVA) | payer BC, SELFPAY | PROVIDERS: PCP Family Medicine; Visit Provider Student in an Organized Health Care Education/Training Program | DX: Z22.7 Latent tuberculosis (principal); R76.8 Other specified abnormal immunological findings in serum | CPT/HCPCS: 80053 ==

== ENCOUNTER → 2020-12-16 09:44 | Outpatient (BNVA) | payer BC, SELFPAY | PROVIDERS: PCP Family Medicine; Visit Provider Internal Medicine | DX: M25.50 Pain in unspecified joint (principal); R76.8 Other specified abnormal immunological findings in serum; Z79.899 Other long term (current) drug therapy | CPT/HCPCS: 36415; 80053; 85025; 85651; 86140 ==

== ENCOUNTER 2021-01-04 09:38 | Outpatient (CLI) | payer BC, SELFPAY ==
[2021-01-04 10:44] LABS: Alanine Aminotransferase 25 U/L (0-33); Albumin Level 4.6 g/dL (3.5-5.2); Alkaline Phosphatase 54 IU/L (35-105); Anion Gap 13.9 (5-19); Aspartate Amino Transferase 21 U/L (0-32); Blood Urea Nitrogen 21 mg/dL (6-20); Calcium 9.4 mg/dL (8.5-10.5); Carbon Dioxide 27 mmol/L (22-29); Chloride 102 mmol/L (98-107); Creatine Phosphokinase 133 U/L (26-192); Globulin 2.6 g/dL (1.3-4.6); Glomerular Filtration Rate 85.6 mL/min (90-130); Glucose 99 mg/dL (65-115); Osmolality Calculated 289 mOsm/kg (285-295); Phosphorus 3.3 mg/dL (2.5-4.5); Potassium 4.9 mmol/L (3.5-5.1); Sodium 138 mmol/L (136-145); Total Bilirubin 0.3 mg/dL (0.15-1.2); Total Protein 7.2 g/dL (6.6-8.7)
== END 2021-01-04 09:39 | disposition home or self-care (01) ==
LOC: LAB 09:44
PROVIDERS: PCP Family Medicine; Visit Provider Internal Medicine
DX: R76.8 Other specified abnormal immunological findings in serum (principal); M25.50 Pain in unspecified joint; M35.00 Sjogren syndrome, unspecified; Z22.7 Latent tuberculosis
CPT/HCPCS: 36415; 80053; 82550; 84100

== ENCOUNTER → 2021-02-23 14:29 | Outpatient (BNVA) | payer BC, SELFPAY | PROVIDERS: PCP Family Medicine; Visit Provider Internal Medicine | DX: R76.8 Other specified abnormal immunological findings in serum (principal); M25.50 Pain in unspecified joint; M35.00 Sjogren syndrome, unspecified; Z22.7 Latent tuberculosis; Z87.891 Personal history of nicotine dependence | CPT/HCPCS: 99214 ==